=== PATIENT | male | born 1965 | race Caucasian/White ===

== ENCOUNTER 2023-12-31 01:57 | Emergency (ER) | payer SELFPAY ==
[~2023-12-31] VITALS: Ht 177.8 cm; Wt 95.0 kg
[2023-12-31 02:01] VITALS: O2SAT 96
[2023-12-31] MEDS ORDERED: ACETAMINOPHEN 325MG TABLET PO ONE (03:00)
[2023-12-31 03:37] VITALS: BP 148/98; PULSE 84; RESP 16
[2023-12-31] MEDS: MORPHINE SULFATE 4 MG/ML INJ (FOR IV/IM USE) IM ONE (03:37)
[2023-12-31] MEDS: ONDANSETRON 4MG ODT PO ONE (03:37)
[2023-12-31] MEDS: ACETAMINOPHEN 325MG TABLET PO NR (04:07)
[2023-12-31] MEDS: LIDOCAINE HCL 1% 20ML VIAL INFIL ONE (05:15)
[2023-12-31] MEDS ORDERED: IBUP-2029 MT (06:28)
== END 2023-12-31 11:31 | disposition home or self-care (01) ==
LOC: ER 01:57
DX: M22.01 Recurrent dislocation of patella, right knee (principal); M17.11 Unilateral primary osteoarthritis, right knee; M25.461 Effusion, right knee; K74.60 Unspecified cirrhosis of liver
CPT/HCPCS: 73560; 27550; 96372; 99284; Q0162; J3490; J2270; Z7610 ×2; L1830

== ENCOUNTER 2023-12-31 16:49 | Emergency (ER) | payer SELFPAY ==
[~2023-12-31] VITALS: Ht 167.6 cm; Wt 87.0 kg
[~2023-12-31 16:49] MED LIST: IBUP-2029 MT
[2023-12-31 17:03] VITALS: BP 115/68; PULSE 81; RESP 16; TEMP 96.6; O2SAT 98
== END 2023-12-31 18:30 | disposition left against medical advice (07) ==
LOC: ER 16:49
DX: S83.004A Unspecified dislocation of right patella, initial encounter (principal); W18.39XA Other fall on same level, initial encounter; Y93.89 Activity, other specified; Y92.89 Other specified places as the place of occurrence of the external cause; Y99.8 Other external cause status
CPT/HCPCS: 99283